=== PATIENT | male | born 1980 | race Caucasian/White ===

== ENCOUNTER 2016-07-23 14:26 | Outpatient (CLI) | payer MEDICAID | END 2016-07-23 23:59 | disposition home or self-care (01) | DX: F33.1 Major depressive disorder, recurrent, moderate (principal); F41.1 Generalized anxiety disorder ==

== ENCOUNTER 2016-10-22 14:41 | Outpatient (CLI) | payer MEDICAID ==
--- NOTE | 2016-10-24 09:54 | XRAY Report ---
CHEST, PA AND LATERAL: 10/22/2016 CLINICAL HISTORY: Cough. FINDINGS: Bony thorax is normal. Heart and great vessels are normal. Mediastinum is not widened. Pulmonary parenchyma shows no significant abnormality. No acute infiltrate is seen. A few minor gra nulomatous calcifications are seen in the left costophrenic angle. 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 JOB #: [id number] EXT JOB #:[id number]
== END 2016-10-22 14:42 | disposition home or self-care (01) ==
LOC: DI.N 14:41
PROVIDERS: ATTEND Physician Assistant
DX: R05 Cough (principal)
CPT/HCPCS: 36415; 71020

== ENCOUNTER 2017-01-09 11:36 | Emergency (ER) | payer MEDICAID ==
[2017-01-09 11:46] VITALS: BP 118/78
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
== END 2017-01-09 12:48 | disposition home or self-care (01) ==
LOC: ED 11:36
DX: M54.12 Radiculopathy, cervical region (principal); F17.200 Nicotine dependence, unspecified, uncomplicated
CPT/HCPCS: 99283

== ENCOUNTER 2017-04-08 10:05 | Outpatient (CLI) | payer MEDICAID ==
--- NOTE | 2017-04-10 10:06 | XRAY Report ---
DATE OF SERVICE: 04/08/2017 CERVICAL SPINE RADIOGRAPH: 04/08/2017 No comparison. INDICATION: Cervicalgia. TECHNIQUE: 3 views FINDINGS Normal alignment. No acute bone findings. There are minimal anterior osteophytes at lower cervical levels. No other degenerative changes. No prevertebral soft tissue swelling. The lateral masses appear symmetric. IMPRESSION: Minimal cervical spondylosis. TD: 04/08/2017 19:35 [facility]
--- NOTE | 2017-04-10 10:07 | XRAY Report ---
DATE OF SERVICE: 04/08/2017 RIGHT SHOULDER: 04/08/2017 No comparison. INDICATION: Pain in right shoulder. FINDINGS: Normal alignment. No evidence of acute fracture. No degenerative changes. Soft tissues grossly unremarkable. IMPRESSION: Negative shoulder. TD: 04/08/2017 19:37 [facility]TDD
== END 2017-04-08 10:06 | disposition home or self-care (01) ==
LOC: DI.N 10:05
PROVIDERS: ATTEND Family Medicine
DX: M47.892 Other spondylosis, cervical region (principal); M25.511 Pain in right shoulder
CPT/HCPCS: 72040

== ENCOUNTER 2017-11-26 17:07 | Emergency (ER) | payer MEDICAID ==
[2017-11-26] MEDS ORDERED: DEXAMETHASONE 10 MG/ML VIAL PO STA (18:06)
--- NOTE | 2017-11-26 18:09 | ED Physician Documentation ---
PD HPI NECK PAIN - Stated complaint Stated Complaint: NECK PX/NUMBNESS - Chief complaint Chief Complaint: Back Pain - History obtained from History obtained from: Patient - History of Present Illness Timing - onset: How many years ago (3+) Timing - duration: Years (3+) Timing - details: Abrupt onset, Still present Location: Lower Quality: Pain, Spasm, Sharp, Similar to prior episodes Associated symptoms: Numbness. No: Fever, Weakness, Incontinent of urine, Unable to urinate, Hematuria, Incontinent of stool Improves with: Other (movement) Worsened by: Other (rest) Similar symptoms before: Diagnosis (cervical radiculopathy) Recently seen: Not recently seen - Additional information Additional information: 36-year-old male with a history of cervical radiculopathy has just returned from [place] from [place]. He has noted that his symptoms of numbness in his hands and down the back of his arms are worse than they have been previously. He is not having weakness now. He does have pain in the lower portion of his neck and pain between his shoulder blades. He has not been into follow-up for his neck since his prior visit. He does state that he has found that gabapentin seems to help the most with this and he refused to take narcotic and he gets along with Robaxin better than Flexeril. Review of Systems Constitutional: denies: Fever Eyes: denies: Decreased vision Ears: denies: Ear pain Nose: denies: Congestion Throat: denies: Sore throat Cardiac: denies: Chest pain / pressure, Palpitations Respiratory: denies: Dyspnea, Cough GI: denies: Nausea, Vomiting : denies: Dysuria Musculoskeletal: reports: Neck pain, Back pain, Extremity pain Neurologic: reports: Numbness. denies: Generalized weakness, Focal weakness PD PAST MEDICAL HISTORY - Past Medical History Endocrine/Autoimmune: None Psych: Depression, Anxiety - Past Surgical History Past Surgical History: Yes - Present Medications Home Medications: Ambulatory Orders Medication Instructions Recorded Confirmed Gabapentin 300 mg PO BID #30 capsule 11/26/17 Methocarbamol [Robaxin-750] 750 mg PO BID PRN #20 tablet 11/26/17 Naproxen 11/26/17 - Allergies Allergies/Adverse Reactions: Allergies Allergy/AdvReac Type Severity Reaction Status Date / Time cefaclor [From Ceclor] Allergy Hives Verified 11/26/17 17:24 - Social History Does the pt smoke?: Yes Smoking Status: Current every day smoker Does the pt drink ETOH?: No Does the pt have substance abuse?: Yes - Immunizations Immunizations are current?: No Immunizations: TDAP >10years/unknown - POLST Patient has POLST: No PD ED PE NORMAL - Vitals Vital signs reviewed: Yes (hypertensive) - General General: Alert and oriented X 3, No acute distress, Well developed/nourished - HEENT HEENT: Atraumatic, PERRL, EOMI - Respiratory Respiratory: No respiratory distress - Back Back: No CVA TTP, No spinal TTP, Other (There is mild point tenderness to the spinal process of C7. 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, No motor deficit, No sensory deficit, Normal speech Eye Opening: Spontaneous Motor: Obeys Commands Verbal: Oriented GCS Score: 15 - Psych Psych: Normal mood, Normal affect Results - Vitals Vitals: Vital Signs - 24 hr 11/26/17 17:22 Temperature 36.8 C Heart Rate 76 Respiratory 20 Rate Blood Pressure 132/113 H O2 Saturation 98 Oxygen O2 Source Room air PD MEDICAL DECISION MAKING - ED course Complexity details: reviewed old records, considered differential, d/w patient ED course: 36-year-old male with a history of cervical radiculopathy has an increase in his symptoms he does not have medications. We will provide some gabapentin and Robaxin for him and he will follow-up with [facility]. He is given dexamethasone here in the emergency department. - Sepsis Event Vital Signs: Vital Signs - 24 hr 11/26/17 17:22 Temperature 36.8 C Heart Rate 76 Respiratory 20 Rate Blood Pressure 132/113 H O2 Saturation 98 Oxygen O2 Source Room air Departure - Departure Disposition: 01 Home, Self Care Clinical Impression: Cervical radiculopathy at C8 Condition: Stable Instructions: ED Cervical Radiculopathy Follow-Up: [facility] [Provider Group] Prescriptions: Gabapentin 300 mg PO BID #30 capsule Methocarbamol [Robaxin-750] 750 mg PO BID PRN #20 tablet PRN Reason: neck pain
[2017-11-26 18:21] VITALS: BP 130/98
== END 2017-11-26 18:19 | disposition home or self-care (01) ==
LOC: ED 17:07
DX: M54.12 Radiculopathy, cervical region (principal); F17.200 Nicotine dependence, unspecified, uncomplicated
CPT/HCPCS: 99283

== ENCOUNTER 2018-01-01 14:09 | Outpatient (CLI) | payer MEDICAID ==
--- NOTE | 2018-01-01 16:45 | XRAY Report ---
Reason: CERVICALGIA Procedure Date: 01/01/2018 Accession Number: [id number] / [id number] Procedure: XR - Cervical Spine 2 View CPT Code: FULL RESULT: EXAM: CERVICAL SPINE RADIOGRAPHY EXAM DATE: 01/01/2018 03:17 PM. CLINICAL HISTORY: Cervicalgia. COMPARISONS: CERVICAL SPINE 2 VIEW 04/08/2017 10:23 AM. TECHNIQUE: 3 views. FINDINGS: Alignment: Straightening of the normal cervical curvature which could be positional is unchanged from prior. No spondylolisthesis or scoliosis. Bones: The cervical vertebral bodies and posterior elements are well visualized from the skull base through C7-T1. No fractures or bone lesions. Note is made of vestigial ribs. Disks: Normal. Disk heights are maintained. Facets: No degenerative disease. Soft Tissues: Normal. No prevertebral soft tissue swelling. The visualized lung apices are clear. IMPRESSION: No significant degenerative disease is identified. Noted vestigial ribs at C7, more prominent on the right. RADIA
== END 2018-01-01 14:10 | disposition home or self-care (01) ==
LOC: DI 14:09
PROVIDERS: ATTEND Family Medicine
DX: M54.2 Cervicalgia (principal)
CPT/HCPCS: 72040

== ENCOUNTER 2018-01-01 15:20 | Emergency (ER) | payer MEDICAID ==
[2018-01-01 16:03] LABS: BASOPHILS # (AUTO) 0.1 10^3/uL (0.0-0.1); BASOPHILS % (AUTO) 0.9 %; EOSINOPHILS # (AUTO) 0.3 10^3/uL (0.0-0.7); EOSINOPHILS % (AUTO) 5.4 %; HGB - HEMOGLOBIN 13.4 g/dL (14.0-18.0); LYMPHOCYTES # (AUTO) 2.8 10^3/uL (1.5-3.5); LYMPHOCYTES % (AUTO) 43.2 %; MEAN CORPUSCULAR HEMOGLOBIN 29.4 pg (27.0-31.0); MEAN CORPUSCULAR HGB CONC 34.4 g/dL (32.0-36.0); MEAN CORPUSCULAR VOLUME 85.4 fL (80.0-94.0); MEAN PLATELET VOLUME 7.8 fL (7.4-11.4); MONOCYTES # (AUTO) 0.4 10^3/uL (0.0-1.0); MONOCYTES % (AUTO) 5.5 %; NEUTROPHILS # (AUTO) 2.9 10^3/uL (1.5-6.6); PLT - PLATELET COUNT 322 10^3/uL (130-450); RED BLOOD COUNT 4.57 10^6/uL (4.70-6.10); RED CELL DISTRIBUTION WIDTH 13.3 % (12.0-15.0); WHITE BLOOD COUNT 6.5 x10^3/uL (4.8-10.8)
[2018-01-01 16:15] LABS: ALBUMIN 3.9 g/dL (3.2-5.5); ALBUMIN/GLOBULIN RATIO 1.6 (1.0-2.2); BILIRUBIN,TOTAL 0.4 mg/dL (0.2-1.0); CALCIUM 9.7 mg/dL (8.5-10.3); CREATININE 1.1 mg/dL (0.6-1.2); TOTAL PROTEIN 6.3 g/dL (6.7-8.2)
--- NOTE | 2018-01-01 17:38 | ED Physician Documentation ---
History of Present Illness - Stated complaint Stated Complaint: WEAKNESS - Chief complaint Chief Complaint: General - History obtained from History obtained from: Patient - History of Present Illness Timing: Other (Starting 2 days ago his abdominal cramping right flank pain associated very slight nausea but no vomiting or changes in bowel movements. He has a remote history of ventral hernia repair with mesh. He denies fevers or chills. He is felt faint and dizzy a few times without actual syncope.) Review of Systems Constitutional: denies: Fever, Chills Nose: denies: Rhinorrhea / runny nose, Congestion GI: reports: Abdominal Pain, Nausea. denies: Vomiting, Constipation, Diarrhea : reports: Hematuria (It was very dark the other day). denies: Dysuria, Frequency PD PAST MEDICAL HISTORY - Past Medical History Endocrine/Autoimmune: None Psych: Depression, Anxiety - Past Surgical History Past Surgical History: Yes - Present Medications Home Medications: Ambulatory Orders Medication Instructions Recorded Confirmed Buprenorphine HCl/Naloxone HCl 01/01/18 [Suboxone 8 mg-2 mg Sl Film] - Allergies Allergies/Adverse Reactions: Allergies Allergy/AdvReac Type Severity Reaction Status Date / Time cefaclor [From [facility]] Allergy Hives Verified 01/01/18 15:34 - Social History Does the pt smoke?: Yes Smoking Status: Current every day smoker Does the pt drink ETOH?: No Does the pt have substance abuse?: Yes - Immunizations Immunizations are current?: No Immunizations: TDAP >10years/unknown - POLST Patient has POLST: No PD ED PE NORMAL - Vitals Vital signs reviewed: Yes - General General: Alert and oriented X 3, No acute distress - Respiratory Respiratory: No respiratory distress, Clear bilaterally - Abdomen Abdomen: Normal bowel sounds, Soft, Non tender - Back Back: No CVA TTP - Extremities Extremities: No edema, No calf tenderness / cord - Neuro Neuro: Alert and oriented X 3, Normal speech Results - Vitals Vitals: Vital Signs - 24 hr 01/01/18 15:27 Temperature 36.9 C Heart Rate 65 Respiratory 16 Rate Blood Pressure 130/50 L O2 Saturation 100 Oxygen O2 Source Room air - Labs Labs: Laboratory Tests 01/01/18 01/01/18 01/01/18 15:57 15:57 17:45 WBC 6.5 RBC 4.57 L Hgb 13.4 L Hct 39.0 L MCV 85.4 MCH 29.4 MCHC 34.4 RDW 13.3 Plt Count 322 MPV 7.8 Neut # (Auto) 2.9 Lymph # (Auto) 2.8 [place] # (Auto) 0.4 Eos # (Auto) 0.3 Baso # (Auto) 0.1 Absolute Nucleated RBC 0.00 Nucleated RBC % 0.1 Sodium 137 Potassium 4.4 Chloride 104 Carbon Dioxide 28 Anion Gap 5.0 L BUN 21 H Creatinine 1.1 Estimated GFR (MDRD) 76 L Glucose 96 Calcium 9.7 Total Bilirubin 0.4 AST 29 ALT 29 Alkaline Phosphatase 50 Total Protein 6.3 L Albumin 3.9 Globulin 2.4 Albumin/Globulin Ratio 1.6 Lipase 24 Urine Color YELLOW Urine Clarity CLEAR Urine pH 6.0 Ur Specific [place] 1.015 Urine Protein NEGATIVE Urine Glucose (UA) NEGATIVE Urine Ketones NEGATIVE Urine Occult Blood NEGATIVE Urine Nitrite NEGATIVE Urine Bilirubin NEGATIVE Urine Urobilinogen 0.2 (NORMAL) Ur Leukocyte Esterase NEGATIVE Ur Microscopic Review NOT INDICATED Urine Culture Comments NOT INDICATED - Rads (name of study) CT KUB Radiology: EMP read contemporaneously (Large stool load, thick bladder wall, right inguinal hernia without bowel) PD MEDICAL DECISION MAKING - ED course ED course: 37-year-old with nonspecific generalized abdominal pain radiating the right flank associated with dark urine a few days ago. Benign exam here and blood work is unremarkable. CT findings as shown. Watchful waiting was advised. - Sepsis Event Vital Signs: Vital Signs - 24 hr 01/01/18 15:27 Temperature 36.9 C Heart Rate 65 Respiratory 16 Rate Blood Pressure 130/50 L O2 Saturation 100 Oxygen O2 Source Room air Departure - Departure Disposition: 01 Home, Self Care Clinical Impression: Abdominal pain Qualifiers: Abdominal location: generalized Qualified Code(s): R10.84 - Generalized abdominal pain Constipation Qualifiers: Constipation type: unspecified constipation type Qualified Code(s): K59.00 - Constipation, unspecified Condition: Good Record reviewed to determine appropriate education?: Yes Instructions: ED Constipation, ED Abdominal Pain Unkn Cause Male Comments: Call your doctor to arrange a follow-up appointment, make the next available appointment. In the interim, return anytime if worse or if new symptoms develop. Forms: Activity restrictions
[2018-01-01 17:56] LABS: BILIRUBIN,URINE NEGATIVE (NEGATIVE); GLUCOSE, URINE (UA) NEGATIVE (NEGATIVE); KETONES,URINE (UA) NEGATIVE (NEGATIVE); LEUKOCYTE ESTERASE, URINE NEGATIVE (NEGATIVE); NITRITE,URINE NEGATIVE (NEGATIVE); OCCULT BLOOD,URINE NEGATIVE (NEGATIVE); PROTEIN,URINE NEGATIVE (NEGATIVE); UROBILINOGEN,URINE 0.2 (NORMAL) E.U./dL (NORMAL)
[2018-01-01 17:58] LABS: CLARITY,URINE CLEAR (CLEAR)
--- NOTE | 2018-01-01 18:30 | CT Report ---
Reason: R flank pain Procedure Date: 01/01/2018 Accession Number: [id number] / [id number] Procedure: CT - Abdomen/Pelvis W/O CPT Code: FULL RESULT: EXAM: CT ABDOMEN AND PELVIS (CT KUB) EXAM DATE: 01/01/2018 06:17 PM. CLINICAL HISTORY: Right flank pain. COMPARISONS: None. TECHNIQUE: Routine axial helical CT imaging was performed through the abdomen and pelvis without IV contrast. Reconstructions: Coronal and sagittal. In accordance with CT protocol optimization, one or more of the following dose reduction techniques were utilized for this exam: automated exposure control, adjustment of mA and/or KV based on patient size, or use of iterative reconstructive technique. FINDINGS: Lung Bases: Unremarkable. Right Kidney/Ureter: No stones, hydronephrosis, or hydroureter. No perinephric fat stranding. Left Kidney/Ureter: No stones, hydronephrosis, or hydroureter. No perinephric fat stranding. Other Solid Organs: Noncontrast images of the solid organs are grossly unremarkable. Gallbladder/Bile Ducts: Unremarkable. Peritoneal Cavity: No free fluid, free air or sourav adenopathy. Bowel is notable for slightly prominent stool, otherwise grossly unremarkable. Some minor inspissated material is seen within the appendix, otherwise, the appendix is normal. There is no surrounding inflammatory change. Pelvic Organs: Mild diffuse bladder wall thickening is seen. There is no bladder stones. No lymphadenopathy. A small fat-containing right inguinal hernia versus lipomatosis changes of the inguinal canal is seen. Vasculature: Unremarkable. Other: None. IMPRESSION: 1. No nephrolithiasis or hydronephrosis. 2. Slightly prominent stool in the colon which may represent constipation. 3. Mild bladder wall thickening. Correlate for cystitis. 4. Small fat-containing right inguinal hernia versus lipomatosis of the inguinal canal. RADIA
[2018-01-01] MEDS ORDERED: MAGNESIUM CITRATE 296 ML BOTTLE PO STA (18:37)
[2018-01-01 18:43] VITALS: BP 109/48
== END 2018-01-01 18:45 | disposition home or self-care (01) ==
LOC: ED 15:20
DX: R10.84 Generalized abdominal pain (principal); K59.00 Constipation, unspecified; M54.2 Cervicalgia; F17.200 Nicotine dependence, unspecified, uncomplicated
CPT/HCPCS: 36415; 72040; 74176; 80053; 81003; 83690; 85025; 99282; 99283; A9270; 81001; 87086

== ENCOUNTER 2018-11-08 00:07 | Outpatient (CLI) | payer MEDICAID | END 2018-11-08 00:08 | disposition critical access hospital (66) | LOC: EMS 00:07 | PROVIDERS: ATTEND Surgery | DX: R11.2 Nausea with vomiting, unspecified (principal); R55 Syncope and collapse; R10.9 Unspecified abdominal pain | CPT/HCPCS: A0425; A0429 ==

== ENCOUNTER 2018-11-08 00:23 | Emergency (ER) | payer MEDICAID ==
--- NOTE | 2018-11-08 01:14 | ED Physician Documentation ---
History of Present Illness - Stated complaint Stated Complaint: WITHDRAWAL - Chief complaint Chief Complaint: MHE - History obtained from History obtained from: Patient - History of Present Illness Timing: Other (no specific time or date of onset) - Additonal information Additional information: BIBA. 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 per medic report, patient ran out of suboxone few days ago and was feeling symptoms of withdrawal and so he smoked unknown substance from a glass pipe yesterday. Review of Systems Unable to obtain: Other (ROS obtained late in ED stay when he was awake and alert (see narrative below)) Constitutional: reports: Reviewed and negative Cardiac: reports: Reviewed and negative Respiratory: reports: Reviewed and negative GI: reports: Reviewed and negative Neurologic: reports: Reviewed and negative Psychiatric: reports: Reviewed and negative PD PAST MEDICAL HISTORY - Past Medical History Past Medical History: Yes Endocrine/Autoimmune: None Psych: Depression, Anxiety - Past Surgical History Past Surgical History: Yes - Present Medications Home Medications: Ambulatory Orders Medication Instructions Recorded Confirmed Buprenorphine HCl/Naloxone HCl 01/01/18 [Suboxone 8 mg-2 mg Sl Film] - Allergies Allergies/Adverse Reactions: Allergies Allergy/AdvReac Type Severity Reaction Status Date / Time cefaclor [From Ceclor] Allergy Hives Verified 11/08/18 00:29 - Social History Does the pt smoke?: No Smoking Status: Former smoker Does the pt drink ETOH?: No Does the pt have substance abuse?: Yes Substance Use and Type: Other - Immunizations Immunizations are current?: No Immunizations: TDAP >10years/unknown - POLST Patient has POLST: No PD ED PE NORMAL - Vitals Vital signs reviewed: Yes - General General: No acute distress, Well developed/nourished, Other (asleep, awakens briefly with repeated verbal and gentle tactile stimuli but falls back asleep rapidly) - HEENT HEENT: Atraumatic, PERRL, EOMI, Moist mucous membranes - Cardiac Cardiac: RRR, No murmur - Respiratory Respiratory: No respiratory distress, Clear bilaterally - Abdomen Abdomen: Soft, Non tender - Derm Derm: Normal color, Warm and dry Results - Vitals Vitals: Oxygen O2 Source Room air PD MEDICAL DECISION MAKING - ED course Complexity details: considered differential, d/w patient ED course: patient was in ED for several hours due to drowsiness. on initial attempt to obtain HPI and ROS, he was asleep, difficult to waken and keep awake. He could not complete any coherent sentences despite multiple attempts by me to have him provide HPI information. He would start to tell me numbers which sound like doses related to his suboxone, then fall back asleep. other times he would tell me he is taking ativan, then stop mid-sentence and say he doesnt take ativan and would struggle to remember what he does take before falling back asleep. his behavior was more suggestive of being exhausted and sleepy than anything else. I did not detect any odor of alcohol nor suspect alcohol ingestion. subsequent r epeat reevaluations during the night provided much the same results until the morning when he was eventually awake, alert, and able to converse articulately with me. As he had been during his stay, he was calm, cooperative, and polite. He corroborated the information provided by medic report, which is that he went to the pharmacy last night to orange picker machine operator his suboxone and in talking to the pharmacist, he apparently expressed a desire to not take suboxone any more. He says the pharmacist called 911 because, per patient, the pharmacist wanted patient to get help in detoxing from the suboxone. patient says an rx was ready for him to orange picker machine operator and that he could have simply taken the rx and gone home but that he wants to detox from it and be off of it. unfortunately, there is no bilingual social worker available today, and it will be approximately 24 hours before a bilingual social worker is scheduled for [facility]. patient is in NAD during ED stay, strongly denies SI. I offered benzodiazepine to help with potential withdrawal until he can either meet with his PCP or else return to ED if he wants to be reevaluated; he is provided with information regarding local and regional detox centers and, ideally, he should contact these and work on getting into a detox facility if this is what he wants. patient declined benzodiazepine, as he says he can return to the pharmacy today and get the rx for the suboxone. I encouraged him to do so, and to take his usual dose until he can discuss options with his prescribing physician. Departure - Departure Disposition: 01 Home, Self Care Clinical Impression: Continuous drug dependence Condition: Good Instructions: Buprenorphine Naloxone oral dissolving film Comments: Crisis Triage Facilities Crisis Triage Facilities provide short-stay crisis triage and stabilization and utilize a recovery model to assist those in behavioral health crisis to access services and supports and resume typical levels of functioning. Multi- disciplinary teams, which include Peer Counselors, Mental Health Technicians, Clinicians and Nursing staff, work to address clients needs. [facility] Crisis Stabilization and Substance Detoxification [address] [place] [address] , [facility] Crisis Stabilization [address] , [facility] Crisis Stabilization and Substance Detoxification [address] [facility] , Call 'the Care Crisis Line' any time at to speak with a licensed mental health professional who will assess the situation, make appropriate referrals. Discharge Date/Time: 11/08/18 10:34
[2018-11-08 10:34] VITALS: BP 114/64
== END 2018-11-08 10:34 | disposition home or self-care (01) ==
LOC: EDUNIT# → ED 00:23
DX: F19.20 Other psychoactive substance dependence, uncomplicated (principal)
CPT/HCPCS: 99283

== ENCOUNTER 2020-01-20 16:59 | Emergency (ER) | payer MEDICAID ==
[2020-01-20 17:11] VITALS: BP 135/77
[2020-01-20] MEDS ORDERED: ALBUTEROL 1 PUFF INH STA (17:49)
--- NOTE | 2020-01-20 17:55 | ED Physician Documentation ---
History of Present Illness - Stated complaint Stated Complaint: SOA - Chief complaint Chief Complaint: Resp - History obtained from History obtained from: Patient - History of Present Illness Timing: How many weeks ago (1) Pain level max: 5 Pain level now: 4 - Additonal information Additional information: 39-year-old male with a history of asthma presents to the emergency department with difficulty breathing for the past week, states it was worse several days ago, but did not have a ride to the emergency department. He complains of a cough as well, dry. [place] like he had a fever today. Nothing makes it better or worse. He states that he had an inhaler in the past, but it is and has not used it for quite some time. Review of Systems Constitutional: denies: Fever, Chills GI: denies: Vomiting, Diarrhea Skin: denies: Rash Musculoskeletal: denies: Neck pain, Back pain Neurologic: denies: Headache PD PAST MEDICAL HISTORY - Past Medical History Past Medical History: Yes Respiratory: Asthma Endocrine/Autoimmune: None Psych: Depression, Anxiety - Past Surgical History Past Surgical History: Yes - Present Medications Home Medications: Ambulatory Orders Medication Instructions Recorded Confirmed Buprenorphine HCl/Naloxone HCl 01/01/18 [Suboxone 8 mg-2 mg Sl Film] Albuterol Sulf [Ventolin Hfa 1 - 2 puffs INH Q4HR PRN #1 inhaler 01/20/20 Inhaler] predniSONE [Deltasone] 10 mg PO [id number] #42 tab 01/20/20 - Allergies Allergies/Adverse Reactions: Allergies Allergy/AdvReac Type Severity Reaction Status Date / Time [facility]aclor [[facility]] Allergy Hives Verified 01/20/20 17:11 - Social History Does the pt smoke?: No Smoking Status: Former smoker Does the pt drink ETOH?: No Does the pt have substance abuse?: Yes - Family History Family history: reports: Non contributory - Immunizations Immunizations are current?: No Immunizations: TDAP >10years/unknown - POLST Patient has POLST: No PD ED PE NORMAL - Vitals Vital signs reviewed: Yes - General General: Alert and oriented X 3, No acute distress - HEENT HEENT: Moist mucous membranes, Pharynx benign - Neck Neck: Supple, no meningeal sign - Cardiac Cardiac: RRR - Respiratory Respiratory: No respiratory distress, Other (diffuse wheezing B) - Abdomen Abdomen: Soft, Non tender, Non distended - Derm Derm: Warm and dry - Neuro Neuro: Alert and oriented X 3 - Psych Psych: Normal mood, Normal affect Results - Vitals Vitals: Vital Signs - 24 hr 01/20/20 01/20/20 01/20/20 17:07 18:00 18:26 Temperature 36.9 C 36.9 C Heart Rate 95 85 63 Respiratory 20 18 19 Rate Blood Pressure 135/77 H O2 Saturation 99 100 Oxygen O2 Source Room air - Rads (name of study) cxr Radiology: Prelim report reviewed, EMP read contemporaneously, See rad report (no acute abnormality.) PD MEDICAL DECISION MAKING - ED course Complexity details: reviewed results, re-evaluated patient, considered differential, d/w patient ED course: Patient feels better after nebulizer treatment. Will place on steroids for home as well. No pneumonia on chest x-ray. Patient is well-appearing, nontoxic. Afebrile. We will refill his inhaler as well. Covid testing sent. Patient counseled regarding signs and symptoms for which I believe and urgent re- evaluation would be necessary. Patient with good understanding of and agreement to plan and is comfortable going home at this time This document was made in part using voice recognition software. While efforts are made to proofread this document, sound alike and grammatical errors may occur. Departure - Departure Disposition: 01 Home, Self Care Clinical Impression: Viral URI with cough Condition: Good Instructions: ED Viral Syndrome Follow-Up: your,doctor in 1 week if not better [Other] Prescriptions: Albuterol Sulf [Ventolin Hfa Inhaler] 1 - 2 puffs INH Q4HR PRN #1 inhaler PRN Reason: Shortness Of Air/Wheezing predniSONE [Deltasone] 10 mg PO [id number] #42 tab Comments: Use the medications as prescribed. Return if you worsen. Follow-up with your doctor in 1 week for repeat evaluation. Your x-ray does not show any pneumonia tonight. Your Covid test will take 1 to 2 days to result. Discharge Date/Time: 01/20/20 18:26
--- NOTE | 2020-01-20 18:43 | XRAY Report ---
PROCEDURE: Chest 1 View X-Ray INDICATIONS: chest pain TECHNIQUE: One view of the chest was acquired. COMPARISON: 10/22/2016 FINDINGS: Surgical changes and devices: None. Lungs and pleura: No pleural effusions or pneumothorax. Lungs are clear. Mediastinum: Mediastinal contours appear normal. Heart size is normal. Bones and chest wall: No suspicious bony lesions. Overlying soft tissues appear unremarkable. IMPRESSION: No acute cardiopulmonary pathology. Reviewed by: Alex Porter MD on 01/20/2020 6:41 PM PDT Approved by: Alex Porter MD on 01/20/2020 6:41 PM PDT Station ID: [id number]
== END 2020-01-20 18:26 | disposition home or self-care (01) ==
LOC: ED 16:59
DX: J06.9 Acute upper respiratory infection, unspecified (principal); Z20.828 Contact with and (suspected) exposure to other viral communicable diseases; J45.909 Unspecified asthma, uncomplicated; Z87.891 Personal history of nicotine dependence
CPT/HCPCS: 71045; 94640; 99284

== ENCOUNTER 2020-02-18 23:29 | Outpatient (CLI) | payer MEDICAID | END 2020-02-18 23:30 | disposition critical access hospital (66) | LOC: EMS 23:29 | PROVIDERS: ATTEND Surgery | DX: R06.02 Shortness of breath (principal) | CPT/HCPCS: A0425; A0427; A0999 ==

== ENCOUNTER 2020-02-18 23:56 | Emergency (ER) | payer MEDICAID ==
[2020-02-19] MEDS ORDERED: DEXAMETHASONE 10 MG/ML VIAL PO STA (00:17)
[2020-02-19] MEDS ORDERED: CHERRY SYRUP 10 ML UDC PO ONE (00:17)
--- NOTE | 2020-02-19 00:20 | ED Physician Documentation ---
PD HPI DYSPNEA - Stated complaint Stated Complaint: SOA - Chief complaint Chief Complaint: Resp - History obtained from History obtained from: Patient - History of Present Illness Timing - onset: How many months ago (2) Timing - onset during: Rest Timing - duration: Months (2) Timing - details: Gradual onset, Still present, Waxing and waning Inciting event(s): Out of meds, Other (exposure to mold and mildew in home) Improved by: Inhaler/neb Worsened by: Exertion, Coughing, Allergens Associated symptoms: Wheezing. No: Fever, Cough, Hemoptysis, Bilateral edema, Unilateral edema Similar symptoms before: Diagnosis (asthma) Recently seen: Not recently seen - Additional information Additional information: 39-year-old male with a history of asthma was seen here 1 month ago with an asthma exacerbation he was placed on a short course of prednisone which he was only able to take 4 pills. He had some issue with the steroid keeping him up at night and he has been using an albuterol inhaler the inhaler has helped he feels that this is all due to some mold and mildew in his home. He denies any fever he does have cough not producing any sputum. He is run out of his albuterol inhaler yesterday and this evening he had acute shortness of breath bad enough that he became panicked and had to call the ambulance. Here in the emergency department he is breathing normally and feels much improved after a DuoNeb treatment in the ambulance Review of Systems Constitutional: denies: Fever Eyes: denies: Decreased vision Ears: denies: Ear pain Nose: reports: Rhinorrhea / runny nose, Congestion Throat: denies: Sore throat Cardiac: denies: Chest pain / pressure, Palpitations Respiratory: reports: Dyspnea, Cough, Wheezing GI: denies: Abdominal Pain, Nausea, Vomiting : denies: Dysuria, Frequency PD PAST MEDICAL HISTORY - Past Medical History Past Medical History: Yes Respiratory: Asthma Endocrine/Autoimmune: None Psych: Depression, Anxiety - Past Surgical History Past Surgical History: Yes - Present Medications Home Medications: Ambulatory Orders Medication Instructions Recorded Confirmed Buprenorphine HCl/Naloxone HCl 01/01/18 [Suboxone 8 mg-2 mg Sl Film] Albuterol Sulf [Ventolin Hfa 1 - 2 puffs INH Q4HR PRN #1 inhaler 01/20/20 Inhaler] predniSONE [Deltasone] 10 mg PO [id number] #42 tab 01/20/20 Albuterol Sulf [Ventolin Hfa 1 - 2 puffs INH Q4HR PRN #1 inhaler 02/19/20 Inhaler] - Allergies Allergies/Adverse Reactions: Allergies Allergy/AdvReac Type Severity Reaction Status Date / Time cefaclor [From [facility]] Allergy Hives Verified 02/19/20 00:01 - Social History Does the pt smoke?: No Smoking Status: Never smoker Does the pt drink ETOH?: No Does the pt have substance abuse?: Yes - Immunizations Immunizations are current?: No Immunizations: TDAP >10years/unknown - POLST Patient has POLST: No PD ED PE NORMAL - Vitals Vital signs reviewed: Yes (hypertensive ) - General General: Alert and oriented X 3, No acute distress, Well developed/nourished - HEENT HEENT: Atraumatic, PERRL, EOMI, Ears normal, Moist mucous membranes, Pharynx benign - Neck Neck: Supple, no meningeal sign, No bony TTP - Cardiac Cardiac: RRR, No murmur - Respiratory Respiratory: No respiratory distress, Other (Inspiratory and expiratory wheezes throughout) - Abdomen Abdomen: Soft, Non tender - Back Back: No CVA TTP, No spinal TTP - Derm Derm: Normal color, Warm and dry, No rash - Extremities Extremities: No deformity, No edema - Neuro Neuro: Alert and oriented X 3, 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, No motor deficit, No sensory deficit, Normal speech Eye Opening: Spontaneous Motor: Obeys Commands Verbal: Oriented GCS Score: 15 - Psych Psych: Normal mood, Normal affect Results - Vitals Vitals: Vital Signs - 24 hr 02/18/20 02/19/20 23:55 00:03 Temperature 36.6 C 36.6 C Heart Rate 72 72 Respiratory 19 19 Rate Blood Pressure 134/84 H 134/84 H O2 Saturation 100 100 Oxygen O2 Source Room air - Rads (name of study) chest Radiology: Prelim report reviewed (Impression: No acute disease.), EMP read indepedently, See rad report PD MEDICAL DECISION MAKING - ED course Complexity details: reviewed results, re-evaluated patient, considered differential, d/w patient ED course: 39-year-old male with history of asthma has had some trouble previously with steroid and here today he is given a dose of dexamethasone as a single dose. We do not have a way to dispense albuterol to the patient and he is kept in the emergency department and administered a DuoNeb treatment prior to discharge. I have asked the patient to refill his albuterol inhaler and to attempt to use some Grace or Zyrtec as well as nasal court. I have asked him to follow-up with his primary to consider inhaled steroid as well. Departure - Departure Disposition: Home, Self Care Clinical Impression: Asthma attack Qualifiers: Asthma severity: mild Asthma persistence: intermittent Qualified Code(s): J45.21 - Mild intermittent asthma with (acute) exacerbation Condition: Stable Instructions: ED Reactive Airway Disease Follow-Up: [facility] [Provider Group] Prescriptions: Albuterol Sulf [Ventolin Hfa Inhaler] 1 - 2 puffs INH Q4HR PRN #1 inhaler PRN Reason: Shortness Of Air/Wheezing Comments: Today it appears you have an allergic asthma and my recommendation for further treatment since you are not able to tolerate the oral prednisone is to use a nonsedating antihistamine such as Grace or Zyrtec. In addition Nasacort is an aivu-nqx-vqkyccg steroid that is not absorbed that will help with your nasal congestion. Follow-up with your primary care doctor for consideration of inhaled steroid.
[2020-02-19] MEDS ORDERED: IPRATROPIUM/ALBUTEROL 3 ML NEB INH STA (02:36)
[2020-02-19 02:40] VITALS: BP 138/87
--- NOTE | 2020-02-19 08:36 | XRAY Report ---
PROCEDURE: Chest 1 View X-Ray INDICATIONS: soa TECHNIQUE: One view of the chest was acquired. COMPARISON: 01.20.20 FINDINGS: Surgical changes and devices: None. Lungs and pleura: No pleural effusions or pneumothorax. Lungs are clear. Mediastinum: Mediastinal contours appear normal. Heart size is normal. Bones and chest wall: No suspicious bony lesions. Overlying soft tissues appear unremarkable. IMPRESSION: No acute process. Concordant with pulmonary interpretation. Reviewed by: Johanna Romero MD on 02/19/2020 8:35 AM [facility] Approved by: Johanna Romero MD on 02/19/2020 8:35 AM [facility] Station ID: [id number]
== END 2020-02-19 03:20 | disposition home or self-care (01) ==
LOC: ED 23:56
DX: J45.21 Mild intermittent asthma with (acute) exacerbation (principal)
CPT/HCPCS: 71045; 94640; 99283; A9270

== ENCOUNTER 2020-10-02 17:27 | Outpatient (CLI) | payer MEDICAID | END 2020-10-02 17:28 | disposition critical access hospital (66) | LOC: EMS 17:27 | DX: R60.0 Localized edema (principal) | CPT/HCPCS: A0425; A0429 ==

== ENCOUNTER 2020-10-02 17:51 | Emergency (ER) | payer MEDICAID ==
[2020-10-02] MEDS ORDERED: EPINEPHrine 1 MG/ML AMP ONE (18:27)
[2020-10-02] MEDS ORDERED: SODIUM CHLORIDE 0.9% 1,000 ML IV STA (18:28)
[2020-10-02] MEDS ORDERED: diphenhydrAMINE INJ 50 MG/ML VIAL IVP STA (18:28)
[2020-10-02] MEDS ORDERED: DEXAMETHASONE 10 MG/ML VIAL IVP STA (18:28)
[2020-10-02] MEDS ORDERED: EPINEPHrine 1 MG/ML AMP IM STA (18:28)
--- NOTE | 2020-10-02 18:29 | ED Physician Documentation ---
PD HPI SKIN - Stated complaint Stated Complaint: ALLERGIC REACTION - Chief complaint Chief Complaint: Allergic Rx - History obtained from History obtained from: Patient - Additional information Additional information: He is having an allergic reaction to something, he does not know what. He thinks it might be a new yogurt. Since yesterday morning has had facial swelling and some epigastric pain. No history of allergic reactions. The nurse called me into the room because he had a transient blood pressure of 60/40 or so, although it was not repeated. Next blood pressure before epinephrine was given was 109/70. Review of Systems Ten Systems: 10 systems reviewed and negative Constitutional: reports: Reviewed and negative Eyes: reports: Reviewed and negative Ears: reports: Reviewed and negative Nose: reports: Reviewed and negative PD PAST MEDICAL HISTORY - Past Medical History Past Medical History: No Respiratory: Asthma Endocrine/Autoimmune: None Psych: Depression, Anxiety - Past Surgical History Past Surgical History: Yes - Present Medications Home Medications: Ambulatory Orders Medication Instructions Recorded Confirmed Clonidine HCl [Clonidine HCl ER] 0.1 mg PO DAILY 10/02/20 10/02/20 EPINEPHrine [Epinephrine] 0.3 mg IJ ONCE PRN #2 syr 10/02/20 predniSONE [Deltasone] 60 mg PO DAILY 5 Days #15 tablet 10/02/20 - Allergies Allergies/Adverse Reactions: Allergies Allergy/AdvReac Type Severity Reaction Status Date / Time cefaclor [From [facility]] Allergy Hives Verified 10/02/20 17:58 - Social History Does the pt smoke?: No Smoking Status: Never smoker Does the pt drink ETOH?: No Does the pt have substance abuse?: No - Immunizations Immunizations are current?: No Immunizations: TDAP >10years/unknown - POLST Patient has POLST: No PD ED PE NORMAL - Vitals Vital signs reviewed: Yes - General General: Alert and oriented X 3, No acute distress - HEENT HEENT: PERRL, EOMI, Other (Significant facial angioedema mostly the upper face. Less so the lips, the oropharynx looks normal.) - Cardiac Cardiac: RRR, No murmur - Respiratory Respiratory: No respiratory distress, Clear bilaterally - Abdomen Abdomen: Non tender - Back Back: No CVA TTP, No spinal TTP - Derm Derm: Normal color, Warm and dry - Neuro Neuro: Alert and oriented X 3, Normal speech Results - Vitals Vitals: Vital Signs - 24 hr 10/02/20 10/02/20 10/02/20 17:53 18:06 20:00 Temperature 36.7 C 36.8 C Heart Rate 49 L 51 L 58 L Respiratory 14 11 L 13 Rate Blood Pressure 100/43 L 95/53 L 97/58 L O2 Saturation 96 98 98 Oxygen O2 Source Room air PD MEDICAL DECISION MAKING - ED course ED course: 39-year-old gentleman with anaphylaxis of unknown etiology. He transient hypotension. He is administered IV fluids, IM epinephrine, and dexamethasone as well as Benadryl. 39-year-old gentleman with transient hyper hypotension related to facial angioedema may be from a food cause. He remained stable after meds here. Not sure if the hypotension was real since it was a single episode and quickly repeated and normal. Departure - Departure Disposition: 01 Home, Self Care Clinical Impression: Anaphylaxis Qualifiers: Encounter type: initial encounter Qualified Code(s): T78.2XXA - Anaphylactic shock, unspecified, initial encounter Condition: Good Record reviewed to determine appropriate education?: Yes Instructions: ED Allergic Reaction General Other Prescriptions: predniSONE [Deltasone] 60 mg PO DAILY 5 Days #15 tablet EPINEPHrine [Epinephrine] 0.3 mg IJ ONCE PRN #2 syr PRN Reason: Allergy Symptoms Comments: You had an episode of anaphylaxis today. It could be due to the yogurt but it is hard to say definitively. I am prescribing you to EpiPen's in case he gets worse again and a few days worth of steroids, you do not need to fill these till tomorrow since the pharmacies are closed. Return if you worsen, follow-up with your primary care physician, next available appointment.
[2020-10-02 20:53] VITALS: BP 99/57
== END 2020-10-02 20:59 | disposition home or self-care (01) ==
LOC: EDUNIT# → EDBD → ED 17:51
DX: T78.2XXA Anaphylactic shock, unspecified, initial encounter (principal)
CPT/HCPCS: 96372; 96374; 96375; 99283; 99284; J1200

== ENCOUNTER 2022-02-05 08:00 | Outpatient (CLI) | payer MEDICAID | END 2022-02-05 23:59 | disposition home or self-care (01) | LOC: LAB.N 08:00 | PROVIDERS: ATTEND Emergency Medicine | DX: L03.011 Cellulitis of right finger (principal) | CPT/HCPCS: 87070; 87181; 87205 ==

== ENCOUNTER 2022-04-01 17:45 | Outpatient (CLI) | payer MEDICAID ==
--- NOTE | 2022-04-02 10:52 | XRAY Report ---
PROCEDURE: Cervical Spine 2 View INDICATIONS: NECK PX TECHNIQUE: 3 view(s) of the cervical spine were acquired. COMPARISON: None. FINDINGS: Bones: No fractures or dislocations to the T1 level. The lateral masses of C1 appear intact on the odontoid view. No suspicious bony lesions. Soft tissues: No prevertebral soft tissue swelling. IMPRESSION: Normal cervical spine. Reviewed by: Bev Pop MD on 04/02/2022 10:51 AM [facility] Approved by: Bev Pop MD on 04/02/2022 10:51 AM [facility] Station ID: [id number]
== END 2022-04-01 23:59 | disposition home or self-care (01) ==
LOC: DI.N 17:45
PROVIDERS: ATTEND Nurse Practitioner
DX: M54.2 Cervicalgia (principal)

== ENCOUNTER 2022-04-17 08:00 | Outpatient (CLI) | payer MEDICAID ==
[2022-04-17 12:10] LABS: BASOPHILS % (AUTO) 0.8 %; EOSINOPHILS # (AUTO) 0.1 10^3/uL (0.0-0.7); EOSINOPHILS % (AUTO) 1.8 %; HCT - HEMATOCRIT 40.4 % (42.0-52.0); HGB - HEMOGLOBIN 13.6 g/dL (14.0-18.0); LYMPHOCYTES # (AUTO) 1.9 10^3/uL (1.5-3.5); LYMPHOCYTES % (AUTO) 36.5 %; MEAN CORPUSCULAR HEMOGLOBIN 29.1 pg (27.0-31.0); MEAN CORPUSCULAR HGB CONC 33.7 g/dL (32.0-36.0); MEAN CORPUSCULAR VOLUME 86.5 fL (80.0-94.0); MONOCYTES # (AUTO) 0.3 10^3/uL (0.0-1.0); MONOCYTES % (AUTO) 5.3 %; NEUTROPHILS # (AUTO) 2.8 10^3/uL (1.5-6.6); NEUTROPHILS % (AUTO) 55.2 %; PLT - PLATELET COUNT 350 10^3/uL (130-450); RED BLOOD COUNT 4.67 10^6/uL (4.70-6.10); RED CELL DISTRIBUTION WIDTH 13.4 % (12.0-15.0); WHITE BLOOD COUNT 5.1 x10^3/uL (4.8-10.8)
[2022-04-17 12:29] LABS: ALBUMIN/GLOBULIN RATIO 1.3 (1.0-2.2); BILIRUBIN,TOTAL 0.9 mg/dL (0.2-1.0); CALCIUM 10.1 mg/dL (8.5-10.3); CREATININE 0.7 mg/dL (0.6-1.2)
== END 2022-04-17 23:59 | disposition home or self-care (01) ==
LOC: LAB.N 08:00
PROVIDERS: ATTEND Physician Assistant Medical
DX: F31.31 Bipolar disorder, current episode depressed, mild (principal)
CPT/HCPCS: 36415; 80053; 84443; 85025

== ENCOUNTER 2023-03-12 15:15 | Outpatient (CLI) | payer MEDICAID ==
--- NOTE | 2023-03-12 15:57 | XRAY Report ---
PROCEDURE: Cervical Spine 2 View INDICATIONS: CERVICAL SPASM TECHNIQUE: 3 view(s) of the cervical spine were acquired. COMPARISON: None. FINDINGS: Bones: No fractures or dislocations to the C7-T1 level. The lateral masses of C1 appear intact on t he odontoid view. No suspicious bony lesions. Soft tissues: No prevertebral soft tissue swelling. IMPRESSION: Unremarkable exam. Reviewed by: Tammy Carpenter MD on 03/12/2023 3:56 PM PST Approved by: Tammy Carpenter MD on 03/12/2023 3:56 PM [facility] Station ID: [id number]
== END 2023-03-12 15:30 | disposition home or self-care (01) ==
LOC: DI.N 15:15
PROVIDERS: ATTEND Family Medicine
DX: M62.838 Other muscle spasm (principal)

== ENCOUNTER 2023-03-13 09:17 | Outpatient (CLI) | payer MEDICAID | END 2023-03-13 09:18 | disposition EMS.NT | LOC: EMS 09:17 | DX: Z03.89 Encounter for observation for other suspected diseases and conditions ruled out (principal) ==

== ENCOUNTER 2023-03-13 22:07 | Outpatient (CLI) | payer MEDICAID | END 2023-03-13 22:08 | disposition EMS.NT | LOC: EMS 22:07 | DX: Z03.89 Encounter for observation for other suspected diseases and conditions ruled out (principal) ==

== ENCOUNTER 2023-09-05 08:00 | Outpatient (CLI) | payer MEDICAID ==
[2023-09-05 20:53] LABS: BASOPHILS % (AUTO) 0.4 %; EOSINOPHILS % (AUTO) 0.4 %; HCT - HEMATOCRIT 39.7 % (42.0-52.0); HGB - HEMOGLOBIN 12.6 g/dL (14.0-18.0); LYMPHOCYTES # (AUTO) 2.5 10^3/uL (1.5-3.5); LYMPHOCYTES % (AUTO) 22.3 %; MEAN CORPUSCULAR HEMOGLOBIN 27.6 pg (27.0-31.0); MEAN CORPUSCULAR HGB CONC 31.7 g/dL (32.0-36.0); MEAN CORPUSCULAR VOLUME 87.1 fL (80.0-94.0); MEAN PLATELET VOLUME 10.5 fL (7.4-11.4); MONOCYTES # (AUTO) 0.5 10^3/uL (0.0-1.0); MONOCYTES % (AUTO) 4.1 %; NEUTROPHILS # (AUTO) 8.1 10^3/uL (1.5-6.6); NEUTROPHILS % (AUTO) 72.5 %; PLT - PLATELET COUNT 397 10^3/uL (130-450); RED BLOOD COUNT 4.56 10^6/uL (4.70-6.10); RED CELL DISTRIBUTION WIDTH 13.8 % (12.0-15.0); WHITE BLOOD COUNT 11.2 x10^3/uL (4.8-10.8)
[2023-09-05 21:08] LABS: ALBUMIN 4.3 g/dL (3.2-5.5); BILIRUBIN,TOTAL 0.4 mg/dL (0.2-1.0); CALCIUM 10.5 mg/dL (8.5-10.3); CREATININE 1.1 mg/dL (0.6-1.3); POTASSIUM 4.5 mmol/L (3.5-4.5); TOTAL PROTEIN 6.5 g/dL (6.4-8.9)
== END 2023-09-05 23:59 | disposition home or self-care (01) ==
LOC: LAB.N 08:00
PROVIDERS: ATTEND Nurse Practitioner
DX: R59.1 Generalized enlarged lymph nodes (principal)
CPT/HCPCS: 36415; 80053; 85025

== ENCOUNTER 2023-09-05 15:20 | Outpatient (CLI) | payer MEDICAID ==
--- NOTE | 2023-09-05 20:32 | XRAY Report ---
PROCEDURE: Cervical Spine 2-3V INDICATIONS: CERVICAL SPASM TECHNIQUE: 3 views of the cervical spine were acquired. COMPARISON: Cervical spine radiographs 03/12/2023 FINDINGS: Bones: No acute fractures or dislocations to the T1 level. The lateral masses of C1 appear intact o n the odontoid view. No suspicious bony lesions. Soft tissues: No prevertebral soft tissue swelling. IMPRESSION: No displaced fracture or traumatic subluxation. No significant interval change. If symptoms persist, MRI could be performed for further evaluation if indicated clinically. Reviewed by: Alejandro Flood MD on 09/05/2023 8:31 PM PDT Approved by: Alejandro Flood MD on 09/05/2023 8:31 PM PDT Station ID: [id number]
== END 2023-09-05 15:21 ==
LOC: DI.N 15:20
PROVIDERS: ATTEND Nurse Practitioner Family
DX: M62.838 Other muscle spasm (principal)

== ENCOUNTER 2023-11-28 00:04 | Outpatient (CLI) | payer MEDICAID | END 2023-11-28 00:05 | disposition critical access hospital (66) | LOC: EMS 00:04 | DX: R45.851 Suicidal ideations (principal); R51.9 Headache, unspecified; M54.2 Cervicalgia; R10.32 Left lower quadrant pain | CPT/HCPCS: A0425; A0429; A0999 ==

== ENCOUNTER 2023-11-28 00:24 | Emergency (ER) | payer MEDICAID ==
[2023-11-28 01:00] VITALS: O2SAT 99
[2023-11-28 01:02] LABS: BASOPHILS % (AUTO) 0.7 %; EOSINOPHILS # (AUTO) 0.4 10^3/uL (0.0-0.7); EOSINOPHILS % (AUTO) 6.6 %; HCT - HEMATOCRIT 36.9 % (42.0-52.0); LYMPHOCYTES # (AUTO) 2.5 10^3/uL (1.5-3.5); LYMPHOCYTES % (AUTO) 42.3 %; MEAN CORPUSCULAR HEMOGLOBIN 28.6 pg (27.0-31.0); MEAN CORPUSCULAR HGB CONC 32.5 g/dL (32.0-36.0); MEAN CORPUSCULAR VOLUME 87.9 fL (80.0-94.0); MEAN PLATELET VOLUME 9.5 fL (7.4-11.4); MONOCYTES # (AUTO) 0.4 10^3/uL (0.0-1.0); MONOCYTES % (AUTO) 6.5 %; NEUTROPHILS # (AUTO) 2.6 10^3/uL (1.5-6.6); NEUTROPHILS % (AUTO) 43.7 %; PLT - PLATELET COUNT 310 10^3/uL (130-450); RED CELL DISTRIBUTION WIDTH 13.8 % (12.0-15.0); WHITE BLOOD COUNT 5.9 x10^3/uL (4.8-10.8)
--- NOTE | 2023-11-28 01:03 | ED Physician Documentation ---
PD HPI MHE - Stated complaint Stated Complaint: SI, HI - Chief complaint Chief Complaint: MHE - History obtained from History obtained from: Patient - Additional information Additional information: BIBA. HPI from patient. Patient was undergoing intake process at [facility] where he presented requesting help with detoxing from kratom. Last use was yesterday. He also tells me he uses methamphetamines but not for a few weeks. Denies alcohol use. During the intake process, he indicated suicidal ideation and auditory hallucinations, prompting [facility] staff to call 911. Patient tells me he has had suicidal thoughts for approximately 6 months now. Regarding AH, he is not clear on the timeframe. He says he can make out what the voices are saying, but is not clear regarding content (such as belittling or commands). Patient denies HI. PD PAST MEDICAL HISTORY - Past Medical History Respiratory: Asthma Endocrine/Autoimmune: None Psych: Depression, Anxiety - Past Surgical History Past Surgical History: Yes - Allergies Allergies/Adverse Reactions: Allergies Allergy/AdvReac Type Severity Reaction Status Date / Time cefaclor [From [facility]] Allergy Hives Verified 10/02/20 17:58 - Social History Does the pt smoke?: No Smoking Status: Never smoker Does the pt drink ETOH?: No Does the pt have substance abuse?: No - Immunizations Immunizations are current?: No Immunizations: TDAP >10years/unknown - POLST Patient has POLST: No PD ED PE NORMAL - Vitals Vital signs reviewed: Yes - General General: Alert and oriented X 3, No acute distress, Well developed/nourished - HEENT HEENT: PERRL, EOMI - Cardiac Cardiac: RRR, No murmur - Respiratory Respiratory: No respiratory distress, Clear bilaterally - Abdomen Abdomen: Soft, Non tender - Neuro Neuro: Alert and oriented X 3 Eye Opening: Spontaneous Motor: Obeys Commands Verbal: Oriented GCS Score: 15 Results - Vitals Vitals: Vital Signs - 24 hr 11/28/23 11/28/23 11/28/23 00:31 00:53 10:45 Temperature 36.8 C 36.7 C Heart Rate 60 70 71 Respiratory 16 18 18 Rate Blood Pressure 116/98 H 118/76 127/75 O2 Saturation 100 99 99 Oxygen O2 Source Room air - Labs Labs: Laboratory Tests 11/28/23 11/28/2324 00:54 00:58 00:58 WBC 5.9 RBC 4.20 L Hgb 12.0 L Hct 36.9 L MCV 87.9 MCH 28.6 MCHC 32.5 RDW 13.8 Plt Count 310 MPV 9.5 Neut # (Auto) 2.6 Lymph # (Auto) 2.5 [place] # (Auto) 0.4 Eos # (Auto) 0.4 Baso # (Auto) 0.0 Absolute Nucleated RBC 0.00 Nucleated RBC % 0.0 Sodium 140 Potassium 4.0 Chloride 109 Carbon Dioxide 28 Anion Gap 3.0 L BUN 16 Creatinine 0.7 Estimated GFR (MDRD) 125 Glucose 86 Calcium 9.8 Total Bilirubin 0.3 AST 19 ALT 15 Alkaline Phosphatase 42 Total Protein 6.1 L Albumin 3.8 Globulin 2.3 Albumin/Globulin Ratio 1.7 Lipase 26 TSH 0.88 Urine Color Urine Clarity Urine pH Ur Specific [place] Urine Protein Urine Glucose (UA) Urine Ketones Urine Occult Blood Urine Nitrite Urine Bilirubin Urine Urobilinogen Ur Leukocyte Esterase Urine RBC Urine WBC Ur Squamous Epith Cells Urine Bacteria Ur Microscopic Review Urine Culture Comments Salicylates < 1.5 Urine Opiates Screen Ur Buprenorphine Scrn Ur Oxycodone Screen Urine Methadone Screen Acetaminophen < 0.1 Ur Barbiturates Screen Ur Tricyclics Screen Ur Phencyclidine Scrn Ur Amphetamine Screen U Methamphetamines Scrn U Benzodiazepines Scrn Urine Cocaine Screen U Cannabinoids Screen Ur Drug Screen Comment Ethyl Alcohol < 10.0 SARS-CoV-2 (PCR) NOT DETECTED 11/28/23 02:12 WBC RBC Hgb Hct MCV MCH MCHC RDW Plt Count MPV Neut # (Auto) Lymph # (Auto) [place] # (Auto) Eos # (Auto) Baso # (Auto) Absolute Nucleated RBC Nucleated RBC % Sodium Potassium Chloride Carbon Dioxide Anion Gap BUN Creatinine Estimated GFR (MDRD) Glucose Calcium Total Bilirubin AST ALT Alkaline Phosphatase Total Protein Albumin Globulin Albumin/Globulin Ratio Lipase TSH Urine Color YELLOW Urine Clarity CLEAR Urine pH 6.0 Ur Specific [place] 1.010 Urine Protein NEGATIVE Urine Glucose (UA) NEGATIVE Urine Ketones NEGATIVE Urine Occult Blood LARGE H Urine Nitrite NEGATIVE Urine Bilirubin NEGATIVE Urine Urobilinogen 0.2 (NORMAL) Ur Leukocyte Esterase NEGATIVE Urine RBC 6-10 H Urine WBC 0-3 Ur Squamous Epith Cells NONE SEEN Urine Bacteria None Seen Ur Microscopic Review INDICATED Urine Culture Comments NOT INDICATED Salicylates Urine Opiates Screen NEGATIVE Ur Buprenorphine Scrn NEGATIVE Ur Oxycodone Screen NEGATIVE Urine Methadone Screen NEGATIVE Acetaminophen Ur Barbiturates Screen NEGATIVE Ur Tricyclics Screen NEGATIVE Ur Phencyclidine Scrn NEGATIVE Ur Amphetamine Screen NEGATIVE U Methamphetamines Scrn NEGATIVE U Benzodiazepines Scrn NEGATIVE Urine Cocaine Screen NEGATIVE U Cannabinoids Screen NEGATIVE Ur Drug Screen Comment CUTOFF CONC BELOW: Ethyl Alcohol SARS-CoV-2 (PCR) PD Medical Decision Making - ED course Complexity details: reviewed results, re-evaluated patient, considered differential, d/w patient ED course: MHE-oriented workup is undertaken with unremarkable results; patient is medically cleared for telepsychiatric evaluation. Telepsychiatrist recommends inpatient treatment. I reviewed this with the patient and he is comfortable with this plan. At the end of my shift, we are awaiting word from [facility] regarding placement. Care of this patient is turned over to the oncoming ED physician (Dr. Mauricio) at end of my shift. Departure - Departure Disposition: [facility]/Unit DC/Xfer Clinical Impression: Suicidal ideation Condition: Stable Forms: PCP List Discharge Date/Time: 11/28/23 12:09
[2023-11-28 01:19] LABS: ALBUMIN 3.8 g/dL (3.2-5.5); ALBUMIN/GLOBULIN RATIO 1.7 (1.0-2.2); ALKALINE PHOSPHATASE 42 IU/L (42-121); ALT ALANINE AMINOTRANSFERASE 15 IU/L (10-60); AST ASPARTATE AMINOTRANSFERASE 19 IU/L (10-42); BILIRUBIN,TOTAL 0.3 mg/dL (0.2-1.0); BUN - BLOOD UREA NITROGEN 16 mg/dL (6-20); CALCIUM 9.8 mg/dL (8.5-10.3); CARBON DIOXIDE - CO2 28 mmol/L (21-32); CHLORIDE 109 mmol/L (101-111); CREATININE 0.7 mg/dL (0.6-1.3); GFR - MDRD 125 (>89); GLUCOSE 86 mg/dL (74-104); LIPASE 26 U/L (11-82); SODIUM 140 mmol/L (135-145); TOTAL PROTEIN 6.1 g/dL (6.4-8.9)
[2023-11-28 01:32] LABS: THYROID STIMULATING HORMONE 0.88 uIU/mL (0.34-5.60)
[2023-11-28 01:58] LABS: ETOH - ETHANOL < 10.0 mg/dL
[2023-11-28 02:03] LABS: ACETAMINOPHEN < 0.1 ug/mL; SALICYLATE < 1.5 mg/dL
[2023-11-28 02:18] LABS: BILIRUBIN,URINE NEGATIVE (NEGATIVE); GLUCOSE, URINE (UA) NEGATIVE (NEGATIVE); KETONES,URINE (UA) NEGATIVE (NEGATIVE); LEUKOCYTE ESTERASE, URINE NEGATIVE (NEGATIVE); NITRITE,URINE NEGATIVE (NEGATIVE); OCCULT BLOOD,URINE LARGE (NEGATIVE); PROTEIN,URINE NEGATIVE (NEGATIVE); UROBILINOGEN,URINE 0.2 (NORMAL) E.U./dL (NORMAL)
[2023-11-28 02:31] LABS: AMPHETAMINE SCREEN,URINE NEGATIVE (NEGATIVE); BARBITURATE SCREEN,UR NEGATIVE (NEGATIVE); BENZODIAZEPINES SCREEN, URINE NEGATIVE (NEGATIVE); BUPRENORPHINE SCREEN, URINE NEGATIVE (NEGATIVE); COCAINE SCREEN URINE NEGATIVE (NEGATIVE); METHADONE SCREEN, URINE NEGATIVE (NEGATIVE); METHAMPHETAMINES SCREEN, URINE NEGATIVE (NEGATIVE); OPIATE SCREEN, URINE NEGATIVE (NEGATIVE); OXYCODONE SCREEN, URINE NEGATIVE (NEGATIVE); THC CANNABINOID SCREEN, URINE NEGATIVE (NEGATIVE); TRICYCLIC ANTIDEPRESSANT,URINE NEGATIVE (NEGATIVE)
[2023-11-28 02:32] LABS: CLARITY,URINE CLEAR (CLEAR)
[2023-11-28 02:35] LABS: BACTERIA,URINE None Seen /HPF (None Seen); SQUAMOUS EPITHELIAL CELL,UR NONE SEEN (<= Few); WBC,URINE 0-3 /HPF (0-3)
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
[2023-11-28 10:53] VITALS: BP 127/75
[2023-11-28] MEDS: LORazepam 1 MG TABLET PO STA (11:59)
[2023-11-28] MEDS: ACETAMINOPHEN 325 MG TABLET PO STA (12:00)
--- NOTE | 2023-12-17 19:42 | ED Physician Documentation ---
ED Addendum - Addendum Addendum: 12/17/23 19:38 The pt was signed out to me at change of shift, pending transfer to inpatient psychiatric unit after presenting from [facility] with hallucinations. The pt was evaluated by telepsychiatry and recommended for inpatient treatment. This was ultimately set up at [facility] in [place]. The pt was calm and cooperative, and agreeable to transfer. Final Impression: 1. Polysubstance abuse 2. Psychosis Disposition: Transfer to inpatient psychiatric facility ([facility]) in stable condition.
== END 2023-11-28 12:09 ==
LOC: EDUNIT# → ED 00:24
DX: R45.851 Suicidal ideations (principal); F19.10 Other psychoactive substance abuse, uncomplicated; F29 Unspecified psychosis not due to a substance or known physiological condition; Z59.00 Homelessness unspecified
CPT/HCPCS: 36415; 80053; 80143; 80179; 80306; 81001; 82077; 83690; 84443; 85025; 87635; 99284; 99285; A9270; G0425; J8499; Q3014; 81003; 87086